=== PATIENT | male | born 1980 | race Caucasian/White ===

== ENCOUNTER → 2017-01-19 | Day surgery (SDC) | payer BC ==
[2017-01-17 15:35] VITALS: Ht 175.3 cm; Wt 88.6 kg
[~2017-01-19] VITALS: Ht 175.3 cm; Wt 88.6 kg
[~2017-01-19] MED LIST: ATROPINE SULFATE 0.1 MG/ML 5ML SYR IV PRN; BUPIVACAINE/EPINEPHRINE 0.25% 10 ML VIAL ONE; CEFAZOLIN 2000 MG/60 ML D5W IV SCH; DEXAMETHASONE SOD INJ 4 MG/ML VIAL ONE; EpHEDrine SULFATE INJ 50 MG/ML AMP IV PRN; EpINEphrine INJ 1MG/ML AMP 1 MG/ML AMP ONE; FENTANYL CITRATE INJ 50 MCG/1 ML 2 ML VIAL IV PRN; FENTANYL CITRATE INJ 50 MCG/1 ML 2 ML VIAL ONE; HYDROmorphone INJ 1 MG/ML SYR IV PRN; KETO10TA PO; LACTATED RINGER'S 1000ML 1,000 ML IV SCH; LIDOCAINE HCL 1% MPF 2 ML VIAL ONE; LIDOCAINE HCL 2% 2 ML VIAL (20MG/ML) ONE; MIDAZOLAM HCL 1 MG/ML 2ML VIAL ONE; ONDANSETRON INJ 2 MG/ML 2 ML VIAL IV PRN; ONDANSETRON INJ 2 MG/ML 2 ML VIAL ONE; OXYC-57 PO; OXYCODONE/ACETAMINOPHEN 5-325 TAB PO PRN; PATIENT'S ALLERGY INFO NEEDS ENTERED SCH; PROMETHAZINE HCL INJ 12.5 MG in SODIUM CHLORIDE 0.9% 50ML 50 ML IV PRN; PROPOFOL IV EMULSION 10 MG/ML 20 ML VIAL IV ONE; ROPIVACAINE 0.5% 5 MG/ML 30 ML VIAL ONE; SODIUM CHLORIDE 0.9% 1000ML 1,000 ML IV SCH
--- NOTE | 2017-01-19 08:07 | History & Physical Bridge - [place] ---
H&P Re-Evaluation Bridge Note: I have examined the patient, reviewed the History & Physical and in the interval since the performance of the History & Physical I have noted the following changes of clinical significance: No changes noted
--- NOTE | 2017-01-19 12:22 | Discharge Instructions-SurgCtr ---
Discharge Instructions Date of Service Jan 19, 2017. Visit Reason for Visit: Disorder Of Acromioclavicular Joint Discharge Discharge Diagnosis / Problem: SAME ABOVE Discharge Goals Goal(s): Decrease discomfort, Improve function Activity Recommendations Activity Limitations: as noted below Lifting Limitations: gradually increase as tolerated Exercise/Sports Limitations: gradually increase as tolerated Shower/Bathe: tomorrow Anesthesia . Post Anesthesia Instructions: If you have had General Anesthesia or IV Sedation: * Do not drive today. * Resume driving when surgeon permits. * Do not make important decisions or sign legal documents today. * Call surgeon for: 1. Temperature elevations greater than 101 degrees F. 2. Uncontrollable pain. 3. Excessive bleeding. 4. Persistent nausea and vomiting. 5. Medication intolerance (nausea, vomiting or rash). * For nausea and vomiting use only clear liquids such as: tea, soda, bouillon until nausea subsides, then gradually increase diet as tolerated. * If you have any concerns or questions, call your surgeon's office. If physician is unavailable and it is an emergency, call 911 or go to the nearest emergency room. . Instructions / Follow-Up Instructions / Follow-Up MEDICATIONS: * Resume previous medications unless instructed otherwise by your surgeon. * Always take pain medication on a full stomach or with food to avoid upset stomach. * Do not drink alcohol or drive while taking narcotics. * Ibuprofen or Tylenol may be taken if narcotic not needed. SPECIAL CARE INSTRUCTIONS: __ None _X_ Keep extremity elevated and iced x 48 hours; apply ice 20-30 minutes 8-10 times/day. May remove at night. _X_ Sling (WEAR NEEDED FOR COMFORT) __24 hrs/day __ Remove at night __ Shoulder Immobilizer __ 24 hrs/day __ Remove at night _X_ Dressing __ Maintain until seen in office, may shower with plastic over site _X_ Remove dressings in 24-48 hours and then may shower _X_ Cover incisions with band-aids after showering __ Do not remove steri-strips Call physician if chills or temperature rises above 102 degrees or pain unrelieved by prescribed pain medications at . . Diet Recommendations Home Diet: no limitations Fluid Restriction: None Procedures Procedures Performed: Right Shoulder Arthroscopy, Acromioplasty, Distal Clavicle Resection Pending Studies Studies pending at discharge: no Work Instructions Return To Work: after follow-up Medical Emergencies . Who to Call and When: Medical Emergencies: If at any time you feel your situation is an emergency, please call 911 immediately. . Non-Emergent Contact Non-Emergency issues call your: Primary Care Provider Call Non-Emergent contact if: you have a fever, temperature is above 101.5 . . "Provider Documentation" section prepared by Boni Cook. .
[2017-01-19 13:05] VITALS: TEMP 36.3
--- NOTE | 2017-01-19 13:28 | Anesthesia Progress Nt - [facility] ---
Anesthesia Post Op Note Date & Time Jan 19, 2017 at 13:28 Vital Signs Pain Intensity: 0 Vital Signs Past 12 Hours Date Time Temp Pulse Resp B/P (MAP) Pulse Ox O2 Delivery O2 Flow Rate FiO2 01/19/17 13:05 36.3 61 16 157/94 (115) 96 Room Air 01/19/17 12:59 66 14 01/19/17 12:59 63 14 95 01/19/17 12:58 36.6 68 16 134/89 96 Room Air 01/19/17 12:56 138/96 01/19/17 12:54 59 18 01/19/17 12:54 59 18 95 01/19/17 12:53 71 23 95 01/19/17 12:53 69 23 01/19/17 12:51 138/95 01/19/17 12:48 61 20 96 01/19/17 12:48 62 20 01/19/17 12:45 137/95 01/19/17 12:43 72 16 01/19/17 12:43 71 16 97 01/19/17 12:40 139/93 01/19/17 12:38 66 19 97 01/19/17 12:38 67 19 01/19/17 12:36 135/98 01/19/17 12:33 66 16 01/19/17 12:33 66 16 99 01/19/17 12:30 124/84 01/19/17 12:28 55 16 01/19/17 12:28 54 16 100 01/19/17 12:25 125/82 01/19/17 12:23 56 17 01/19/17 12:23 56 17 100 01/19/17 12:22 57 18 100 01/19/17 12:22 57 18 01/19/17 12:21 124/81 01/19/17 12:19 36.8 58 16 119/90 100 Mask 6 01/19/17 12:18 119/90 01/19/17 11:17 0 01/19/17 11:16 148/85 01/19/17 11:12 53 17 98 01/19/17 11:12 55 14 98 01/19/17 11:11 132/74 01/19/17 11:06 111/82 01/19/17 11:02 56 01/19/17 11:02 58 21 100 01/19/17 11:01 134/97 01/19/17 11:00 54 01/19/17 11:00 56 18 154/94 98 01/19/17 09:23 36.9 69 16 137/93 (108) 97 Room Air Notes Mental Status: alert / awake / arousable, participated in evaluation Pt Amnestic to Procedure: Yes Nausea / Vomiting: adequately controlled Pain: adequately controlled Airway Patency, RR, SpO2: stable & adequate BP & HR: stable & adequate Hydration State: stable & adequate Anesthetic Complications: no major complications apparent
[2017-01-19 13:37] VITALS: BP 128/83; PULSE 61; O2SAT 95
--- NOTE | 2017-01-19 15:30 | [facility] Post Operative Brief Note ---
Immediate Operative Summary Operative Date Jan 19, 2017. Pre-Operative Diagnosis Right Shoulder AC Joint Arthritis Post-Operative Diagnosis Same Procedure(s) Performed Right Shoulder Arthroscopy, Acromioplasty, Distal Clavicle Resection Surgeon Dr. Engel Home Housekeeper Surgeon(s) Diann Cook PA-C Estimated Blood Loss 0 mL Findings as above Specimens None Complication(s) None Disposition Recovery Room / PACU
--- NOTE | 2017-01-19 18:16 | OPERATIVE REPORT ---
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 POSTOPERATIVE DIAGNOSIS: Same. PROCEDURE: Right shoulder diagnostic arthroscopy with limited debridement, distal clavicle resection, and acromioplasty. SURGEON: Dr. Rhett Engel. JERSEY KNITTER: Azeem Cook PA-C, whose assistance was necessary for positioning the shoulder and helping with instrumentation. ANESTHESIA: General with a right interscalene nerve block. COMPLICATIONS: None. CONDITION: Stable to PACU. INDICATIONS: Miguel is a pleasant 36-year-old male who presented to my office a with chronic right shoulder pain. MRI and clinical examination were diagnostic for AC joint arthritis of the right shoulder. After failing conservative treatment, he elected to undergo arthroscopy. DESCRIPTION OF PROCEDURE: On 01/19/2017, he arrived at [facility] for the above procedure. He was seen in the preoperative holding area and the operative extremity was identified and signed. He was given a preoperative antibiotic and a right interscalene nerve block. He was taken back to the operating room, laid on the table in supine position and put under general anesthesia. He was then put into the beachchair position. The right shoulder was prepped and draped in sterile fashion. Time-out was done and the patient and operative extremity was properly identified. A scope was introduced in the posterior portal. Diagnostic arthroscopy showed no cartilage damage to the humeral head or the glenoid. There was a little tearing of the superior labrum. The biceps tendon was intact. There was a little fraying of the anterior supraspinatus and it was frayed around the biceps hunter mechanism. The remainder of the rotator cuff was intact. An anterior portal was made. A shaver was used to do a limited debridement of the intraarticular structures. The biceps tendon was pulled into the joint and there was no evidence of pathology. Because he was not having any labral symptoms preoperatively, I decided to leave the degenerative labral tear alone. The scope was then put into the subacromial space. A lateral portal was made. A shaver was used to do a complete subacromial and subdeltoid bursectomy. An ablator was used to tease the coracoacromial ligament off the undersurface of the acromion and a 5-0 nicolasa was used to complete an acromioplasty of a Bigliani type 3 acromion. A shaver was used to remove any excess debris. The bursal side of the rotator cuff was examined extensively without evidence of tear. The attention was then turned to the distal clavicle. Through an anterior portal, a shaver and ablator were used to skeletonize the distal clavicle. A 5-0 nicolasa was then used to resect the distal 5 mm from the clavicle. Complete resection was checked under direct visualization. A final diagnostic arthroscopy showed no additional pathology. The joint was then irrigated and arthroscopic instruments were removed. Portal sites were closed with 3-0 nylon. He was then placed in a soft dressing and regular arm sling. He was then extubated, transferred to a litter and taken to the postanesthesia care unit in stable condition. He tolerated the procedure well. I attest to the content of the Intraoperative Record and any orders documented therein. Any exception s are noted below.
== END | disposition home or self-care (01) ==
LOC: X.SURG 09:11
PROVIDERS: ATTEND Orthopaedic Surgery
DX: M13.811 Other specified arthritis, right shoulder (principal); Z83.3 Family history of diabetes mellitus